=== PATIENT | female | born 1930 | race African-American/Black ===

== ENCOUNTER 2017-11-18 14:43 | Inpatient (IN) | payer OTHER ==
[~2017-11-18] VITALS: Ht 165.1 cm; Wt 64.0 kg
[2017-11-18 15:30] LABS: APPEARANCE CLEAR ((CLEAR)); BILIRUBIN NEGATIVE; BLOOD SMALL; COLOR STRAW ((YELLOW)); GLUCOSE (STRIP) NEGATIVE; KETONES NEGATIVE; LEUKOCYTES LARGE; NITRITE NEGATIVE; PROTEIN (STRIP) NEGATIVE; SPECIFIC GRAVITY 1.004 (1.000-1.030); UROBILINOGEN 0.2 MG/DL (0.2-1.0)
[2017-11-18 15:41] LABS: BACTERIA RARE /HPF; EPITHELIAL CELLS RARE /HPF; MUCUS NONE SEEN /LPF; RED BLOOD CELLS 0-5 /HPF (0-5); UCUL ADDED? YES
[2017-11-18 15:55] LABS: BASOPHIL (%) 1.1 % (0-1); BASOPHIL COUNT 0.1 K/uL (0-0.1); EOSINOPHIL (%) 3.2 % (0-5); EOSINOPHIL COUNT 0.2 K/uL (0-0.3); HEMATOCRIT 31.4 % (36.0-46.0); HEMOGLOBIN 9.4 G/DL (11.9-15.5); IMMATURE GRANULOCYTE (%) 0.4 % (0.0-0.7); LYMPHOCYTE (%) 20.1 % (15-42); MCHC 29.9 G/DL (30.0-36.0); MCV 83.5 FL (83-99); MONOCYTE COUNT 0.5 K/uL (0-0.8); NEUTROPHIL (%) 65.2 % (45-76); NEUTROPHIL COUNT 3.1 K/uL (1.8-6.4); PLATELET COUNT 243 K/uL (156-360); RBC DIS.WIDTH-CV 18.6 % (11.8-14.6); RBC DIS.WIDTH-SD 56.6 % (39-53); RED BLOOD COUNT 3.76 M/uL (3.80-5.20); WHITE BLOOD COUNT 4.7 K/uL (4.1-10.2)
[2017-11-18 16:02] LABS: CHLORIDE 110 mEq/L (99-109); POTASSIUM 4.3 mEq/L (3.7-5.4); SODIUM 143 mEq/L (136-147)
[2017-11-18 16:04] LABS: GLUCOSE 94 mg/dL (70-99)
[2017-11-18 16:08] LABS: CREATININE 0.9 mg/dL (0.6-1.3)
[2017-11-18 16:09] LABS: PTT 25.7 SEC (25-37); UREA NITROGEN (BUN) 15 mg/dL (9-23)
[2017-11-18 16:16] LABS: TROP-I INTERPRETATION NEGATIVE; TROPONIN-I < 0.01 ng/mL (0.0-0.30)
[2017-11-18 16:24] LABS: GFR ESTIMATE (CALCULATED) > 59 mL/min/
[2017-11-18] MEDS ORDERED: TYLENOL325 M2 PO (20:34)
[2017-11-18] MEDS ORDERED: ASPIRIN EC325 MG PO (20:35)
[2017-11-18] MEDS ORDERED: ATORVASTATIN CA80 MG PO (20:35)
[2017-11-18] MEDS ORDERED: LOPRESSOR25 MG PO (20:36)
[2017-11-18] MEDS ORDERED: MILK OF MAGN PO (20:38)
[2017-11-18] MEDS ORDERED: MIRTAZAPINE15 MG PO (20:38)
[2017-11-18 21:13] LABS: THYROTROPIN (TSH) 2.8 MIU/L (0.4-5.5)
[2017-11-18 21:19] LABS: FERRITIN 9 NG/ML (10-291)
[2017-11-18 21:38] LABS: IRON < 10 MCG/DL (35-150)
[2017-11-18 22:17] VITALS: BP 139/75
[2017-11-19 00:20] VITALS: BP 138/79
[2017-11-19 06:05] LABS: HEMATOCRIT 25.8 % (36.0-46.0); HEMOGLOBIN 7.6 G/DL (11.9-15.5); MCH 24.1 PG (29.0-34.0); MCHC 29.5 G/DL (30.0-36.0); MCV 81.9 FL (83-99); NRBC (%) 0.4 /100 WBC (0-0); PLATELET COUNT 197 K/uL (156-360); RBC DIS.WIDTH-CV 18.5 % (11.8-14.6); RBC DIS.WIDTH-SD 55.1 % (39-53); RED BLOOD COUNT 3.15 M/uL (3.80-5.20); WHITE BLOOD COUNT 4.7 K/uL (4.1-10.2)
[2017-11-19 06:35] LABS: CHLORIDE 113 MEQ/L (99-109); CREATININE 0.6 MG/DL (0.6-1.3); GFR ESTIMATE (CALCULATED) > 59 mL/min/; GLUCOSE 85 mg/dL (70-99); POTASSIUM 3.8 MEQ/L (3.7-5.4); SODIUM 143 MEQ/L (136-147); UREA NITROGEN (BUN) 13 mg/dL (9-23)
[2017-11-19 07:17] VITALS: BP 118/80
[2017-11-19 09:47] LABS: BASOPHIL COUNT 0.1 K/uL (0-0.1); EOSINOPHIL (%) 1.8 % (0-5); EOSINOPHIL COUNT 0.1 K/uL (0-0.3); HEMATOCRIT 27.5 % (36.0-46.0); HEMOGLOBIN 8.1 G/DL (11.9-15.5); IMMATURE GRANULOCYTE (%) 0.4 % (0.0-0.7); LYMPHOCYTE (%) 21.5 % (15-42); LYMPHOCYTE COUNT 1.1 K/uL (1.0-2.8); MCH 24.7 PG (29.0-34.0); MCHC 29.5 G/DL (30.0-36.0); MCV 83.8 FL (83-99); MONOCYTE (%) 13.3 % (3-12); MONOCYTE COUNT 0.7 K/uL (0-0.8); NEUTROPHIL COUNT 3.1 K/uL (1.8-6.4); PLATELET COUNT 195 K/uL (156-360); RBC DIS.WIDTH-CV 18.6 % (11.8-14.6); RBC DIS.WIDTH-SD 56.8 % (39-53); RED BLOOD COUNT 3.28 M/uL (3.80-5.20)
[2017-11-19 09:58] VITALS: BP 125/61
[2017-11-19 15:30] VITALS: BP 105/65
[2017-11-20 00:35] VITALS: BP 115/73
[2017-11-20 04:55] VITALS: BP 114/70
[2017-11-20 06:14] LABS: BASOPHIL (%) 0.9 % (0-1); EOSINOPHIL (%) 4.3 % (0-5); EOSINOPHIL COUNT 0.2 K/uL (0-0.3); HEMATOCRIT 27.5 % (36.0-46.0); HEMOGLOBIN 8.1 G/DL (11.9-15.5); IMMATURE GRANULOCYTE (%) 0.4 % (0.0-0.7); LYMPHOCYTE (%) 24.9 % (15-42); LYMPHOCYTE COUNT 1.2 K/uL (1.0-2.8); MCH 24.6 PG (29.0-34.0); MCHC 29.5 G/DL (30.0-36.0); MCV 83.6 FL (83-99); MONOCYTE (%) 12.8 % (3-12); MONOCYTE COUNT 0.6 K/uL (0-0.8); NEUTROPHIL (%) 56.7 % (45-76); NEUTROPHIL COUNT 2.7 K/uL (1.8-6.4); PLATELET COUNT 188 K/uL (156-360); RBC DIS.WIDTH-CV 18.3 % (11.8-14.6); RBC DIS.WIDTH-SD 55.8 % (39-53); RED BLOOD COUNT 3.29 M/uL (3.80-5.20); WHITE BLOOD COUNT 4.7 K/uL (4.1-10.2)
[2017-11-20 06:36] LABS: CHLORIDE 108 MEQ/L (99-109); CREATININE 0.6 MG/DL (0.6-1.3); GFR ESTIMATE (CALCULATED) > 59 mL/min/; GLUCOSE 92 mg/dL (70-99); POTASSIUM 4.1 MEQ/L (3.7-5.4); SODIUM 139 MEQ/L (136-147); UREA NITROGEN (BUN) 14 mg/dL (9-23)
[2017-11-20 07:27] VITALS: BP 110/65
[2017-11-20 11:10] VITALS: BP 107/74
[2017-11-20] MEDS ORDERED: BISAC-EVAC10 MG PR (12:18)
[2017-11-20 15:20] VITALS: BP 120/78
[2017-11-20 22:23] VITALS: BP 133/76
[2017-11-21 07:39] VITALS: BP 106/65
[2017-11-21] MEDS ORDERED: FERROUS SULFAT325 MG PO (11:15)
[2017-11-21] MEDS ORDERED: Vitamin B-12 PO (11:15)
[2017-11-21] MEDS ORDERED: BACTRIM,SEPT1 TABLET PO (11:18)
== END 2017-11-21 14:38 | disposition home or self-care (01) | DRG 640 ==
LOC: EME 14:43 → 5EAST 19:03 → EDOF 19:03 → ENRESERV 19:04 → 5EAST 20:53 → ENPENDDIS 11-21 14:00 → 5EAST 11-21 14:38
PROVIDERS: Emergency Medicine; Hospitalist
DX: E53.8 Deficiency of other specified B group vitamins (principal); N39.0 Urinary tract infection, site not specified; B96.4 Proteus (mirabilis) (morganii) as the cause of diseases classified elsewhere; G93.41 Metabolic encephalopathy; S22.31XA Fracture of one rib, right side, initial encounter for closed fracture; S40.211A Abrasion of right shoulder, initial encounter; W10.9XXA Fall (on) (from) unspecified stairs and steps, initial encounter; Y92.099 Unspecified place in other non-institutional residence as the place of occurrence of the external cause; D50.9 Iron deficiency anemia, unspecified; E78.5 Hyperlipidemia, unspecified; I10 Essential (primary) hypertension; F03.90 Unspecified dementia, unspecified severity, without behavioral disturbance, psychotic disturbance, mood disturbance, and anxiety; R60.0 Localized edema; R29.6 Repeated falls
CPT/HCPCS: 70450; 71046; 71100; 72125; 73030; 80048; 81003; 82272; 82607; 82728; 83540; 84443; 84484; 85025; 85027; 85610; 85730; 87040; 87077; 87086; 87186; 93005; 93970; 99281; 99285; J0696; J1630; J1644; J3420; J7030; J7050; Q0138